=== PATIENT | male | born 1970 | race Caucasian/White ===

== ENCOUNTER 2019-06-11 10:58 | Inpatient (IN) | payer BC ==
[~2019-06-11] VITALS: Ht 177.8 cm; Wt 92.7 kg
[2019-06-11 12:00] VITALS: BP 150/96
[2019-06-11 12:53] LABS: BASOPHILS 0.3 % (0-2); EOSINOPHILS 1.3 % (0-7); HEMATOCRIT 38.1 % (42.0-54.0); HEMOGLOBIN 13.9 g/dL (13.5-17.5); IMMATURE GRANULOCYTES 0.4 % (0-5); LYMPHOCYTES 15.6 % (15-50); MCH 30.5 pg (26.0-34.0); MCHC 36.5 g/dL (31.0-37.0); MCV 83.6 fL (80.0-100.0); MEAN PLATELET VOLUME 8.3 fL (7.4-10.4); MONOCYTES 9.4 % (2-11); PLATELET COUNT 231 10x3/uL (130-400); RBC 4.56 10x6/uL (4.20-6.10); RDW 13.3 % (11.5-14.5); WBC 7.9 10x3/uL (4.8-10.8)
[2019-06-11 13:26] LABS: ALBUMIN 3.5 g/dL (3.4-5.0); ALKALINE PHOSPHATASE 137 U/L (30-120); ALT (SGPT) 24 U/L (10-68); BILIRUBIN - TOTAL 0.46 mg/dL (0.2-1.3); CALCIUM 8.8 mg/dL (8.5-10.1); CARBON DIOXIDE 31.8 mmol/L (21.0-32.0); CREATININE - SERUM 0.5 mg/dL (0.6-1.3); GLUCOSE 136 mg/dL (74-106); MAGNESIUM - SERUM 1.6 mg/dL (1.8-2.4); PROTEIN - SERUM 6.8 g/dL (6.4-8.2); UREA NITROGEN 7 mg/dL (7-18); eGFR NON AFRICAN AMERICAN > 90 mL/min (90-120)
[2019-06-11 13:28] LABS: CALC OSMOLALITY 239 mosm/kg (275-300); POTASSIUM - SERUM 4.1 mmol/L (3.5-5.1)
[2019-06-11 13:30] LABS: CHLORIDE - SERUM 82 mmol/L (98-107); SODIUM 119 mmol/L (136-145)
[2019-06-11] MEDS ORDERED: LISINOPRIL40 MG PO (14:16)
[2019-06-11] MEDS ORDERED: PROSCAR5 MG PO (14:17)
[2019-06-11] MEDS ORDERED: FLOMAX0.4 MG PO (14:17)
[2019-06-11] MEDS ORDERED: TOPROL XL100 MG PO (14:18)
[2019-06-11] MEDS ORDERED: ZYLOPRIM300 MG PO (14:19)
[2019-06-11] MEDS ORDERED: GLYBURIDE5 M1 PO (14:20)
[2019-06-11] MEDS ORDERED: CALAN SR120 MG PO (14:21)
[2019-06-11] MEDS ORDERED: IBUPROFEN800 MG PO (14:22)
[2019-06-11] MEDS ORDERED: ATIVAN1 MG PO (14:24)
[2019-06-11] MEDS ORDERED: OMEPRAZOLE40 MG PO (14:27)
[2019-06-11] MEDS ORDERED: GLUCOPHAGE1000 MG PO (14:27)
[2019-06-11 15:21] LABS: APPEARANCE CLEAR (CLEAR); BILIRUBIN NEGATIVE (NEGATIVE); COLOR YELLOW (YELLOW); GLUCOSE NEGATIVE (NEGATIVE); KETONE NEGATIVE (NEGATIVE); NITRITE NEGATIVE (NEGATIVE); PROTEIN NEGATIVE (NEGATIVE); UROBILINOGEN NORMAL (NORMAL)
[2019-06-11 15:43] VITALS: BP 144/95
[2019-06-11 17:17] VITALS: BP 150/96; Ht 177.8 cm; Wt 92.7 kg
--- NOTE | 2019-06-11 19:41 | NUR ---
REPORT RECEIVED. BEDSIDE SHIFT REPORT COMPLETE. PT UP IN BED. A&O, RR EVEN AND UNLABORED. NO S/SX OF DISTRESS OBSERVED. NOP VOICED C/O OR CONERNS NOTED AT THIS TIME. CALL LIGHT IN REACH. WILL CTM.
[2019-06-11 20:19] VITALS: BP 133/93
--- NOTE | 2019-06-11 22:41 | NUR ---
PT REFUSED EVENING INSULIN STATES HIS SUGAR IS HIGH "BECAUSE OF THE DINNER" NO FURTHER NEEDS EXPRESSED.
[2019-06-12 00:21] VITALS: BP 120/67
[2019-06-12 05:29] VITALS: BP 114/67
[2019-06-12 06:35] LABS: BASOPHILS 0.2 % (0-2); EOSINOPHILS 1.9 % (0-7); HEMATOCRIT 38.7 % (42.0-54.0); IMMATURE GRANULOCYTES 0.3 % (0-5); LYMPHOCYTES 14.9 % (15-50); MCH 30.1 pg (26.0-34.0); MCHC 36.2 g/dL (31.0-37.0); MCV 83.2 fL (80.0-100.0); MEAN PLATELET VOLUME 8.8 fL (7.4-10.4); MONOCYTES 9.2 % (2-11); NEUTROPHILS 73.5 % (40-80); PLATELET COUNT 239 10x3/uL (130-400); RBC 4.65 10x6/uL (4.20-6.10); RDW 13.5 % (11.5-14.5); WBC 6.4 10x3/uL (4.8-10.8)
[2019-06-12 06:57] LABS: ALKALINE PHOSPHATASE 124 U/L (30-120); ALT (SGPT) 23 U/L (10-68); BILIRUBIN - TOTAL 0.62 mg/dL (0.2-1.3); CALC OSMOLALITY 251 mosm/kg (275-300); CALCIUM 8.5 mg/dL (8.5-10.1); CARBON DIOXIDE 26.8 mmol/L (21.0-32.0); CHLORIDE - SERUM 90 mmol/L (98-107); CREATININE - SERUM 0.5 mg/dL (0.6-1.3); GLUCOSE 144 mg/dL (74-106); MAGNESIUM - SERUM 1.7 mg/dL (1.8-2.4); PROTEIN - SERUM 6.7 g/dL (6.4-8.2); SODIUM 125 mmol/L (136-145); UREA NITROGEN 5 mg/dL (7-18); eGFR NON AFRICAN AMERICAN > 90 mL/min (90-120)
--- NOTE | 2019-06-12 07:24 | NUR ---
PT LAYING SUPINE. COFFEE RECIEVED PER REQUEST. RR EVEN AND UNLABORED ON RA. DENIES NEEDS OR PAIN AT THIS TIME. CALL LIGHT WITHIN REACH. BED IN LOWEST POSITION. CALL LIGHT WITHIN REACH.
[2019-06-12 09:15] VITALS: BP 156/87
--- NOTE | 2019-06-12 10:06 | NUR ---
I have reviewed this patient and I concur with the Shift Assessment completed by the Licensed Practical Nurse today this shift.
[2019-06-12] MEDS ORDERED: THERMOTABS 1 GM1 GM PO (10:26)
--- NOTE | 2019-06-12 12:20 | NUR ---
D/C INSTRUCTIONS REVIEWED WITH PT. VERBALIZED UNDERSTANDING AND NO FURTHER QUESTIONS AT THIS TIME. IV D/C WITH CATHETER TIP INTACT. PT REFUSED WHEELCHAIR. LEFT WITH STEADY GAIT WITH ALL BELONGINGS
== END 2019-06-12 13:31 | disposition home or self-care (01) | DRG 641 ==
LOC: D.M2 10:58 → OBSVTIME 10:59 → D.M2 15:14
PROVIDERS: Family Medicine; ADMIT Family Medicine; ATTEND Family Medicine
DX: E87.1 Hypo-osmolality and hyponatremia (principal); F17.213 Nicotine dependence, cigarettes, with withdrawal; E11.9 Type 2 diabetes mellitus without complications; I10 Essential (primary) hypertension; K21.9 Gastro-esophageal reflux disease without esophagitis; F10.10 Alcohol abuse, uncomplicated